=== PATIENT | male | born 1945 | race Caucasian/White ===

== ENCOUNTER 2017-01-01 10:58 | Day surgery (SDC) | payer OTHER ==
[2016-12-23 15:14] VITALS: BMI 28.7
[~2017-01-01 10:58] MED LIST: LACTATED RINGERS 1,000 ML IV SCH
[2017-01-01 11:58] VITALS: TEMP 97
[2017-01-01] MEDS ORDERED: PROPOFOL 10 MG/ML 20 ML VIAL IV ONE (12:58)
[2017-01-01 13:34] VITALS: PULSE 54; RESP 16
--- NOTE | 2017-01-01 13:47 | P.PCN ---
Date of Procedure: 01/01/17 Preoperative Diagnosis: Postoperative Diagnosis: Procedure(s) Performed: Procedure: Total colonoscopy. Preoperative diagnosis: Screening for neoplasia. Postoperative diagnosis: 1. Sigmoid diverticulosis with no evidence of acute diverticulitis or strictures. 2. Low-grade internal hemorrhoids without bleeding at the time of this exam. 3. No polyps or cancer or other pathology seen. Preparation: HalfLytely prep. Sedation: Was provided by anesthesia. Brief clinical history: The patient is a 71-year-old male who is referred for this evaluation for screening for neoplasia. The patient had had intermittent rectal bleeding over the years which he ascribed to hemorrhoids. However, he noted darker-type blood on the toilet tissue October first this year which made him concerned. This evaluation is to assess for neoplasia. Procedure: With the patient on his left lateral decubitus position and after informed consent and adequate sedation, the perianal area was inspected and it did not show any fissures or fistulas. There were no masses felt on digital rectal examination. The Olympus CFQ 160L video colonoscope was then inserted in the rectum in the usual fashion and advanced to the cecum. There were several diverticular orifices seen scattered in the sigmoid with no evidence of acute diverticulitis or strictures. No polyps or tumors were seen. I retroflexed the endoscope in the rectum before the endoscope was withdrawn. Low -grade internal hemorrhoids were noted but there was no bleeding. The patient tolerated the procedure well. Plan: The patient was reassured. Discussed dietary measures and local care for hemorrhoids including [id number] remedies. He will follow up with you as planned and I recommended repeat exam in 10 years depending on his overall health at that time. Implants: Indications for Procedure: Operative Findings: Description of Procedure:
[2017-01-01 13:59] VITALS: BP 169/81
== END 2017-01-01 14:02 | disposition home or self-care (01) ==
LOC: ORWHC2ENDO 10:58
DX: Z12.11 Encounter for screening for malignant neoplasm of colon (principal); K57.30 Diverticulosis of large intestine without perforation or abscess without bleeding; K64.8 Other hemorrhoids; I10 Essential (primary) hypertension; Z79.82 Long term (current) use of aspirin; Z79.899 Other long term (current) drug therapy
CPT/HCPCS: J2704; G0121

== ENCOUNTER 2022-06-06 11:59 | Day surgery (SDC) | payer OTHER ==
[2022-06-04 15:56] VITALS: BMI 28.8
[~2022-06-06 11:59] MED LIST changes: +MOXIFLOXACIN HCL 0.5% DROPS 3 ML BTL OP PRN; +TETRACAINE 0.5% OPHTH (PF) DROPS 4 ML BTL OP PRN; +TIMOLOL 0.5% OPHTH DROPS 5 ML BTL OP PRN
[2022-06-06] MEDS: CYCLOPENTOLATE 1% OPHTH SOLN 2 ML BTL OP PRN ×3 (13:04→13:16)
[2022-06-06] MEDS: PHENYLEPHRINE 2.5% OPHTH DRP 2ML OP PRN ×3 (13:07→13:19)
[2022-06-06 13:11] VITALS: TEMP 97.8
[2022-06-06] MEDS ORDERED: DUOVISC KIT (GREEN BOX) INTRAOCULA ONE (13:42)
[2022-06-06] MEDS ORDERED: MIDAZOLAM 2 MG/2 ML VIAL ONE (13:42)
[2022-06-06] MEDS ORDERED: fentaNYL (PF) 50 MCG/ML 2 ML AMP ONE (13:42)
[2022-06-06] MEDS ORDERED: BALANCED SALT IRRIG SOLN COMB2 15 ML IRRIG.SOLN IRRIGATION ONE (13:42)
[2022-06-06] MEDS ORDERED: LIDOCAINE 1% (PF) 10MG/ML VIAL MISCELLANE ONE (13:43)
[2022-06-06] MEDS ORDERED: EPINEPHrine (PF) 0.3 ML in BALANCED SALT IRRIG SOLN COMB2 500 ML IRRIGATION ONE (13:44)
[2022-06-06] MEDS ORDERED: TRYPAN BLUE 0.06% SYRINGE 0.5 ML SYRINGE INTRAOCULA ONE (14:03)
--- NOTE | 2022-06-06 14:15 | P.OP ---
Date of Procedure: 06/06/22 Preoperative Diagnosis: NS & PSc Postoperative Diagnosis: same Procedure(s) Performed: PIOL< OD Implants: MX60E 19.50 Anesthesia: MAC Surgeon: José Miguel Mckeon Pathology: none sent Condition: stable Disposition: same day Indications for Procedure: blurry vision Operative Findings: No complications
[2022-06-06 14:47] VITALS: BP 160/90; PULSE 85; RESP 16
--- NOTE | 2022-06-07 01:11 | OP ---
OPERATIVE REPORT PROCEDURES: Phacoemulsification of cataract and intraocular lens implant of the right eye. PREOPERATIVE DIAGNOSES: Nuclear sclerosis and posterior subcapsular cataract. POSTOPERATIVE DIAGNOSES: Nuclear sclerosis and posterior subcapsular cataract. ANESTHESIA: Topical. ESTIMATED BLOOD LOSS: None. SPECIMEN TAKEN: None. NARRATIVE: After obtaining the appropriate consent, the patient was brought to the operating room. There, he was placed under cardiac monitoring, prepped and draped in the usual sterile manner. He was approached from his right temporal side and at the 11 o'clock position, an MVR blade was used to create a paracentesis port. Through this opening 1% Xylocaine MPF 50:50 mix with balanced salt solution was injected into the anterior chamber. This was followed by instillation of Trypan blue which was allowed to dwell in the eye for 1 minute. This was irrigated away with balanced salt solution. The anterior chamber was then stabilized using Viscoat. At the 9 o'clock position, a 2.5 mm keratome was used to create a self-sealing corneal flap incision. Through this opening, a cystotome was introduced to begin a continuous tear capsulorrhexis, which was then completed using the Utrata forceps. Hydrodissection and hydrodelineation of the lens were accomplished with balanced salt solution. Phacoemulsification of the lens utilizing phaco chop was accomplished in 23.98 seconds at 16% power. Additional Xylocaine MPF was instilled into the anterior chamber. This was followed by removal of the remaining cortical material under irrigation and aspiration as well as careful polishing of the posterior capsule in the capsule vacuum mode. Provisc was then used to stabilize the capsular bag and [employer]ch [employer] Lomb MX60E 19.5 diopter posterior chamber intraocular lens was then inserted into the capsular bag without difficulty. Irrigation and aspiration were used to remove any viscoelastic from in and around the intraocular lens as well as the anterior chamber. The eye was then brought to normal intraocular pressure through the paracentesis port and all wounds were confirmed watertight. He then received 2 drops of 0.5% timolol followed by 2 drops of moxifloxacin, was then lightly patched and shielded in the usual manner. There were no complications from the procedure. He tolerated the procedure well and was returned to outpatient recovery in good condition. MMODL / IJN: [id number] /
== END 2022-06-06 15:13 | disposition home or self-care (01) ==
LOC: OR 11:59
PROVIDERS: ATTEND Ophthalmology
DX: H25.11 Age-related nuclear cataract, right eye (principal); I10 Essential (primary) hypertension; E78.00 Pure hypercholesterolemia, unspecified
CPT/HCPCS: 66984; C1780; J2250; J0171; J3010; J2001

== ENCOUNTER 2022-07-09 09:02 | Day surgery (SDC) | payer OTHER ==
[2022-07-07 10:45] VITALS: BMI 28.8
[~2022-07-09 09:02] MED LIST changes: +LIDOCAINE 1% (10MG/ML) FOR IV START INTRADERMA PRN
[2022-07-09] MEDS: CYCLOPENTOLATE 1% OPHTH SOLN 2 ML BTL OP PRN ×3 (09:44→09:56)
[2022-07-09] MEDS: PHENYLEPHRINE 2.5% OPHTH DRP 2ML OP PRN ×3 (09:47→09:59)
[2022-07-09 09:56] VITALS: RESP 16; TEMP 98.9
[2022-07-09] MEDS ORDERED: fentaNYL (PF) 50 MCG/ML 2 ML AMP ONE (10:08)
[2022-07-09] MEDS ORDERED: MIDAZOLAM 2 MG/2 ML VIAL ONE (10:08)
[2022-07-09] MEDS ORDERED: BALANCED SALT IRRIG SOLN COMB2 15 ML IRRIG.SOLN INTRAOCULA ONE (10:21)
[2022-07-09] MEDS ORDERED: DUOVISC KIT (GREEN BOX) INTRAOCULA ONE (10:21)
[2022-07-09] MEDS ORDERED: LIDOCAINE 1% (PF) 10MG/ML VIAL MISCELLANE ONE (10:22)
--- NOTE | 2022-07-09 10:37 | P.OP ---
Date of Procedure: 07/09/22 Preoperative Diagnosis: NS Postoperative Diagnosis: same Procedure(s) Performed: PIOL, OS Implants: MX60E 20.50 Anesthesia: MAC Surgeon: Jos éMiguel Mckeon Pathology: none sent Condition: stable Disposition: same day Indications for Procedure: blurry vision Operative Findings: no complications
[2022-07-09 10:42] VITALS: PULSE 84
[2022-07-09 11:05] VITALS: BP 169/88
--- NOTE | 2022-07-09 13:23 | OP ---
OPERATIVE REPORT PREOPERATIVE DIAGNOSIS: Nuclear sclerosis, left eye. POSTOPERATIVE DIAGNOSIS: Nuclear sclerosis, left eye. PROCEDURES: Phacoemulsification of cataract and intraocular lens implant of the left eye. ESTIMATED BLOOD LOSS: Zero. SPECIMEN TAKEN: None. NARRATIVE: After obtaining the appropriate consent, the patient was brought to the operating room where the patient was placed under cardiac monitoring and prepped and draped in the usual sterile manner. At the 5 o'clock position, a 15-degree super sharp blade was used to create a paracentesis followed by instillation of 1% Xylocaine MPF 50:50 mix with BSS into the anterior chamber. This was followed by DuoVisc viscoelastic to stabilize the anterior chamber. At the 3 o'clock position a self-sealing corneal flap incision was created using 2.8 mm ramesh keratome. A cystotome was used to initiate a continuous tear capsulorrhexis which was completed with the Utrata forceps. A Binkhorst cannula was used to hydrodissect the lens nucleus followed by hydrodelineation. Phacoemulsification of the lens was performed utilizing phacochop in 18 seconds at 23% power. The remaining cortical material was removed using the irrigation aspiration mode followed by additional 1% Xylocaine MPF into the anterior chamber followed by viscoelastic to stabilize the capsular bag. A Bausch [employer] Lomb MX 60E 20.5 diopters posterior chamber lens was placed into the capsular bag without difficulty. The remaining viscoelastic material was removed from the anterior chamber with the irrigation/aspiration. Balanced salt solution was used to normalize the intraocular pressure. The incision was checked for watertight integrity. The patient then received 2 drops of 0.5% timolol followed by 2 drops Vigamox, was lightly patched and shielded in the usual manner. There were no complications from the procedure. The patient tolerated the procedure well and was returned to recovery in good condition. MMODL / IJN: [id number] /
== END 2022-07-09 11:35 | disposition home or self-care (01) ==
LOC: OR 09:02
PROVIDERS: ATTEND Ophthalmology
DX: H25.12 Age-related nuclear cataract, left eye (principal)
CPT/HCPCS: 66984; C1780; J2250; J3010; J2001

== ENCOUNTER → 2023-09-16 | Outpatient (CLI) | payer OTHER | END | disposition home or self-care (01) | LOC: LABWHC1 11:23 | PROVIDERS: ATTEND Radiology Radiation Oncology | DX: C61 Malignant neoplasm of prostate (principal) | CPT/HCPCS: 36415; 84153 ==

== ENCOUNTER 2023-12-08 10:44 | Day surgery (SDC) | payer OTHER ==
[~2023-12-08 10:44] MED LIST changes: +HYDROmorphone 0.5 MG/0.5 ML SYRINGE IVP PRN; -LACTATED RINGERS 1,000 ML IV SCH; +MIDAZOLAM 2 MG/2 ML VIAL IV PRN; -MOXIFLOXACIN HCL 0.5% DROPS 3 ML BTL OP PRN; -TETRACAINE 0.5% OPHTH (PF) DROPS 4 ML BTL OP PRN; -TIMOLOL 0.5% OPHTH DROPS 5 ML BTL OP PRN
--- NOTE | 2023-12-08 11:01 | P.HPIHPCON ---
History of Present Illness H&P Date: 12/08/23 Chief Complaint: Prostate cancer This is a 78-year-old male with history of [place] 7(3+4) prostate cancer, elected to proceed with radiation therapy. Presents today for SpaceOAR gel placement. Risk benefit and rationale of surgery was discussed with him in detail. Aware the risk of bleeding infection, and potential of developing rectal toxicity even with a spacer Consent for Procedure: I have explained the operation/procedure to the patient, including the risks, benefits, side effects, alternative therapies (including not receiving the proposed treatment or service), the likelihood of the patient achieving his/her goals, and potential recuperation problems for the procedure/sedation/analgesia, as well as any blood products, if indicated. I also explained to the patient the risks, benefits and side effects of the alternatives, as well as the risks related to not receiving the proposed procedure, care, treatment, or services. Past Medical History Past Medical History: Cancer, Eye Disorder, GI Bleed, Hypertension Additional Past Medical History / Comment(s): Prostate cancer, STATES WHITE COAT SYNDROME CAUSES ELEVATED B/P, past rectal bleed History of Any Multi-Drug Resistant Organisms: None Reported Past Surgical History: Appendectomy Additional Past Surgical History / Comment(s): COLONOSCOPY, RT/LT CATARACT REMOVED Past Anesthesia/Blood Transfusion Reactions: No Reported Reaction Smoking Status: Current every day smoker - Past Family History Mother Family Medical History: Cancer Sister(s) Family Medical History: Cancer Additional Family Medical History / Comment(s): BREAST CANCER Medications and Allergies Home Medications Medication Instructions Recorded Confirmed Type Aspirin EC [Ecotrin Low Dose] 81 mg PO QAM 12/23/16 12/02/23 History Cholecalciferol (Vitamin D3) 2,000 unit PO DAILY 12/23/16 12/02/23 History [Vitamin D3] Cyanocobalamin [Vitamin B-12] 500 mcg PO DAILY 12/23/16 12/02/23 History Multivit-Min/FA/Lycopen/Lutein 1 each PO DAILY 12/23/16 12/02/23 History [Centrum Silver Tablet] Pravastatin Sodium [Pravachol] 20 mg PO HS 12/23/16 12/02/23 History Selenium 200 mcg PO DAILY 12/23/16 12/02/23 History Vitamin E (Dl,Tocopheryl Acet) 400 unit PO DAILY 12/23/16 12/02/23 History [Vitamin E] amLODIPine [Norvasc] 10 mg PO QAM 12/23/16 12/02/23 History lisinopriL 40 mg PO QAM 06/04/22 12/02/23 History Allergies Allergy/AdvReac Type Severity Reaction Status Date / Time No Known Allergies Allergy Verified 12/02/23 15:51 Surgical - Exam - General no distress, no pain - Eyes normal ocular movement, no pale - ENT normal nares, normal mucosa - Respiratory normal expansion, normal respiratory effort - Abdomen Abdomen: soft, non tender Assessment and Plan Assessment: OR for SpaceOAR gel placement
[2023-12-08] MEDS: LACTATED RINGERS 1,000 ML IV SCH (11:26)
[2023-12-08] MEDS: DEXAMETHASONE SOD PHOSPHATE 4 MG/ML 1 ML VIAL IV ONE (11:26)
[2023-12-08] MEDS: ONDANSETRON 4 MG/2 ML VIAL IVP ONE (11:26)
[2023-12-08 11:37] VITALS: TEMP 98.1
[2023-12-08] MEDS ORDERED: PROPOFOL 10 MG/ML 20 ML VIAL IV ONE (11:55)
[2023-12-08] MEDS ORDERED: MIDAZOLAM 2 MG/2 ML VIAL ONE (11:55)
[2023-12-08] MEDS ORDERED: fentaNYL (PF) 50 MCG/ML 2 ML AMP ONE (11:55)
[2023-12-08] MEDS: LIDOCAINE 2% INJ 20 MG/ML SQ ONE ×2 (12:15)
--- NOTE | 2023-12-08 12:45 | P.OP ---
Date of Procedure: 12/08/23 Preoperative Diagnosis: Prostate Cancer Postoperative Diagnosis: same Procedure(s) Performed: SpaceOAR gel placement Implants: [employer] SpaceOAR gel Estimated Blood Loss (ml): 1 Pathology: none sent Condition: stable Disposition: PACU Indications for Procedure: This is a 78-year-old male with history of [place] 7(3+4) prostate cancer, elected to proceed with radiation therapy. Presents today for SpaceOAR gel placement. Risk benefit and rationale of surgery was discussed with him in detail. Aware the risk of bleeding infection, and potential of developing rectal toxicity even with a spacer Description of Procedure: The patient was taken to the operating room and placed in the dorsolithotomy position, with his legs supported in Christopher stirrups. The external genitalia was prepped and draped sterilely. The transrectal ultrasound probe was placed intrarectally. The prostate was imaged. The probe was then placed within the stabilizing stand. A spinal needle was advanced under ultrasonic guidance to the level of the urogenital diaphragm, and lidocaine was used to infiltrate the tissues as the needle was withdrawn. Next, the SpaceOAR needle was passed through the midline of the perineum, 1-2 cm anterior to the anal opening. The needle was slowly advanced under ultrasonic guidance until the needle tip was located within the fat plane between the prostate and rectum, at the level of the mid prostate gland. The needle was confirmed to be midline on the axial imaging. A small amount of normal saline was injected for hydrodissection. Next, the SpaceOAR components were mixed and loaded into the Y connector per protocol. The Y connector was then connected to the needle, and the components were injected slowly over a course of approximately 10 seconds. A total of 10 ml was injected. Significant distance was created between the prostate and rectum, as desired. It should be noted that at no point was there any concern of rectal perforation. The needle was withdrawn, as well as the transrectal ultrasound probe, and the procedure was terminated. The patient tolerated the procedure well and was taken to the recovery room in stable condition
[2023-12-08 13:29] VITALS: BP 165/87; PULSE 72; RESP 14
== END 2023-12-08 13:20 | disposition home or self-care (01) ==
LOC: OR 10:44
PROVIDERS: ATTEND Urology
DX: C61 Malignant neoplasm of prostate (principal); I10 Essential (primary) hypertension; F17.200 Nicotine dependence, unspecified, uncomplicated; Z90.49 Acquired absence of other specified parts of digestive tract
CPT/HCPCS: 55874; C1889; J2001; J2250; J1100; J0690; J2405; J3010; J2704